=== PATIENT | female | born 1975 | race Caucasian/White ===

== ENCOUNTER → 2020-11-22 | Outpatient (CLI) | payer OTHER ==
[~2020-11-22] MED LIST: CETI10CA PO; FLUT9.9S NS; LACT1CAP29 PO; LEVO25TA4 PO; MULT-735 PO; [UNRECOGNIZED DRUG - REMARK]; sudafed
== END ==
LOC: LAB 14:56
PROVIDERS: ATTEND Nurse Anesthetist, Certified Registered
DX: Z01.812 Encounter for preprocedural laboratory examination (principal); Z20.822 Contact with and (suspected) exposure to COVID-19
CPT/HCPCS: U0003; U0005

== ENCOUNTER → 2020-11-26 | Day surgery (SDC) | payer OTHER ==
[~2020-11-26] MED LIST changes: +IPRATRPIUM/ALBUTEROL 0.5/2.5MG 3 ML NEBU. NEB PRN; +IV RINGERS SOLUTION,LACTATED 1,000 ML IV SCH; +LIDOCAINE 2% PF 5 ML VIAL. ONE; +MIDAZOLAM HCL PF 2 MG/2 ML VIAL. IV ONE; +ONDANSETRON PF 4 MG/2 ML VIAL. IV PRN; +PROPOFOL 10,000 MCG/ML (20ML) VIAL IV ONE
[2020-11-26 08:43] LABS: U PREG PATIENT NEGATIVE (NEG)
[2020-11-26 09:52] VITALS: BP 107/71
== END | disposition home or self-care (01) ==
LOC: SURG 08:11
PROVIDERS: ATTEND Emergency Medicine
DX: Z12.11 Encounter for screening for malignant neoplasm of colon (principal); K57.30 Diverticulosis of large intestine without perforation or abscess without bleeding; K63.5 Polyp of colon; K63.89 Other specified diseases of intestine; F41.9 Anxiety disorder, unspecified; K21.9 Gastro-esophageal reflux disease without esophagitis; Z80.0 Family history of malignant neoplasm of digestive organs; Z79.899 Other long term (current) drug therapy
CPT/HCPCS: 45385; 81025; 88305; J2001; J2704; J7120